=== PATIENT | male | born 1990 | race Caucasian/White ===

== ENCOUNTER 2017-10-22 08:10 | Emergency (ER) | payer BC ==
[2017-10-22] MEDS ORDERED: Diphtheria,Pertussis(Acell),Tetanus Vaccine 0.5 ML Syringe IM ONE (08:40)
[2017-10-22] MEDS ORDERED: Lidocaine 1% with EPINEPHrine 1:100,000 20 ML MDV INJECT ONE (08:40)
[2017-10-22] MEDS ORDERED: Bacitracin Oint 1 GM U/D Packet TOP ONE (08:53)
--- NOTE | 2017-10-22 08:53 | EDM.PDOC ---
ED HPI GENERAL MEDICAL PROBLEM - General Chief Complaint: Laceration Stated Complaint: laceration to forehead Time Seen by Provider: 10/22/17 08:39 - History of Present Illness INITIAL COMMENTS - FREE TEXT/NARRATIVE: HISTORY AND PHYSICAL: History of present illness: The patient is a healthy 27 y/o male who presents after he tripped over a suitcase this morning and fell and hit his forehead on a computer table. He did not pass out or blackout and prior to these events he was having no systemic complaints. He complains of a laceration to his forehead only and complaints of pain at the skin level but no bony pain no visual changes no bite changes tooth problems neck pain or headache. He's had no nausea or vomiting. He has no other injuries or complaints specifically no extremity complaints. Patient is unsure of his last tetanus shot. Review of systems: As per history of present illness and below otherwise all systems reviewed and negative. Past medical history: As per history of present illness and as reviewed below otherwise noncontributory. Surgical history: As per history of present illness and as reviewed below otherwise noncontributory. Social history: No reported history of drug or alcohol abuse. Family history: As per history of present illness and as reviewed below otherwise noncontributory. Physical exam: Temp: Well-developed well-nourished man who is nontoxic and vital signs are reviewed by me. HEENT: normocephalic with no palpable skull for head or facial bone deformities , there is a 2.5 cm laceration in the shape of a hockey stick at is right for head extending just to the level of his eyebrow which has depth to the subcutaneous tissue, EOMs are intact, pupils reactive, negative for conjunctival pallor or scleral icterus, mucous membranes moist, throat clear, neck supple, nontender, trachea midline. Bite and teeth are also intact and nasal bridge is stable. TMs are normal bilaterally and there is no nasal blood appreciated. Lungs: Clear to auscultation, breath sounds equal bilaterally, chest nontender. Heart: S1S2, regular rate and rhythm no overt murmurs Abdomen: Soft, nondistended, nontender. Negative for masses or hepatosplenomegaly. NABS. Pelvis: Stable nontender. Genitourinary: Deferred. Rectal: Deferred. Extremities: Atraumatic, full range of motion without defects or deficits negative for cords or calf pain. Neurovascular unremarkable. Neuro: Awake, alert, oriented. Cranial nerves II through XII unremarkable. Cerebellum unremarkable. Motor and sensory unremarkable throughout. Exam nonfocal. Diagnostics: [] Therapeutics: Tdap, wound irrigation and wound care Procedure note: After the procedure was explained to the patient and nursing irrigated the area the wound was infused with 1% lidocaine with epinephrine in a local fashion. The wound was explored and no foreign bodies were appreciated. The area was prepped and draped in sterile fashion and the wound was closed using #2 sutures of simple interrupted 5-0 Vicryl in the subcutaneous tissue and a total number of #7 simple interrupted sutures of 5-0 nylon. The wound was of intermediate complexity and did measure a total length of 2.5 cm. The patient tolerated the procedure well and there were no complications. Bacitracin and a dressing were applied by nursing. Impression: Forehead laceration status post blunt facial trauma Definitive disposition and diagnosis as appropriate pending reevaluation and review of above. Forehead Pain Score (Numeric/FACES): 3 - Related Data Allergies Allergy/AdvReac Type Severity Reaction Status Date / Time No Known Allergies Allergy Verified 10/22/17 08:40 Home Meds: Home Meds . [No Known Home Meds] 10/22/17 [History] Past Medical History Musculoskeletal History: Reports: Other (See Below) Other Musculoskeletal History: Mitochondrial myopathies Social & Family History - Family History Family Medical History: Noncontributory - Tobacco Use Smoking Status *Q: Never Smoker Second Hand Smoke Exposure: No - Caffeine Use Caffeine Use: Reports: None - Recreational Drug Use Recreational Drug Use: No ED ROS GENERAL - Review of Systems Review Of Systems: ROS reveals no pertinent complaints other than HPI. ED EXAM, SKIN/RASH Exam: See Below (See dictation) Course - Vital Signs Last Recorded V/S: Last Vital Signs Temp 36.6 C 10/22/17 08:20 Pulse 64 10/22/17 08:20 Resp 16 10/22/17 08:20 BP 122/55 L 10/22/17 08:20 Pulse Ox 98 10/22/17 08:20 - Orders/Labs/Meds Orders: Active Orders 24 hr Category Date Time Status Communication Order [RC] STAT Care 10/22/17 08:40 Active Vaccines to be Administered [RC] PER UNIT ROUTINE Care 10/22/17 08:40 Active Meds: Medications Discontinued Medications Generic Name Dose Route Start Last Admin Trade Name Yulissa PRN Reason Stop Dose Admin Bacitracin 1 dose 10/22/17 08:53 10/22/17 09:14 Bacitracin Oint 1 Gm TOP 10/22/17 08:54 1 dose ONETIME ONE Administration Diphtheria/Tetanus/Acell Pertussis 0.5 ml 10/22/17 08:40 10/22/17 09:05 Adacel IM 10/22/17 08:41 0.5 ml .ONCE ONE Administration Lidocaine/Epinephrine 20 ml 10/22/17 08:40 10/22/17 09:06 Xylocaine 1% With Epinephrine 1:100,000 INJECT 10/22/17 08:41 20 ml ONETIME ONE Administration Departure - Departure Time of Disposition: 09:33 Disposition: Home, Self-Care 01 Condition: Good Clinical Impression: Blunt trauma of face Qualifiers: Encounter type: initial encounter Qualified Code(s): S09.93XA - Unspecified injury of face, initial encounter Laceration of forehead Qualifiers: Encounter type: initial encounter Qualified Code(s): S01.81XA - Laceration without foreign body of other part of head, initial encounter - Discharge Information Referrals: PCP,None [Primary Care Provider] - Forms: ED Department Discharge Additional Instructions: The following information is given to patients seen in the emergency department who are being discharged to home. This information is to outline your options for follow-up care. We provide all patients seen in our emergency department with a follow-up referral. The need for follow-up, as well as the timing and circumstances, are variable depending upon the specifics of your emergency department visit. If you don't have a primary care physician on staff, we will provide you with a referral. We always advise you to contact your personal physician following an emergency department visit to inform them of the circumstance of the visit and for follow-up with them and/or the need for any referrals to a consulting specialist. The emergency department will also refer you to a specialist when appropriate. This referral assures that you have the opportunity for followup care with a specialist. All of these measure are taken in an effort to provide you with optimal care, which includes your followup. Under all circumstances we always encourage you to contact your private physician who remains a resource for coordinating your care. When calling for followup care, please make the office aware that this follow-up is from your recent emergency room visit. If for any reason you are refused follow-up, please contact the [facility] emergency department at and ask to speak to the emergency department charge nurse. [facility]- Internal Medicine and Family [address] [address] Keep area clean and dry for next 24 hours and then cleanse only with mild soap and water pat dry and apply bacitracin or Neosporin. He may stop the ointment after 3 days. Sutures should be removed in 7 days here in the emergency department or with your provider in the clinic. Please do not use Band-Aids as this impairs wound healing. If he needs to cover the area please use a piece of gauze area and to ER as needed and as discussed. - My Orders Last 24 Hours: My Active Orders 10/22/17 08:40 Communication Order [RC] STAT Vaccines to be Administered [RC] PER UNIT ROUTINE - Assessment/Plan Last 24 Hours: My Active Orders 10/22/17 08:40 Communication Order [RC] STAT Vaccines to be Administered [RC] PER UNIT ROUTINE
== END 2017-10-22 09:43 | disposition home or self-care (01) ==
LOC: MW.ED 08:10
DX: S01.81XA Laceration without foreign body of other part of head, initial encounter (principal); S09.93XA Unspecified injury of face, initial encounter; Z23 Encounter for immunization; W22.03XA Walked into furniture, initial encounter
CPT/HCPCS: 12011; 90471; 90715; 99282; 99283-25

== ENCOUNTER 2017-10-29 09:51 | Emergency (ER) | payer BC | END 2017-10-29 10:15 | disposition left against medical advice (07) | LOC: MW.ED 09:51 | DX: Z53.21 Procedure and treatment not carried out due to patient leaving prior to being seen by health care provider (principal) ==